=== PATIENT | male | born 1960 | race Caucasian/White ===

== ENCOUNTER 2018-04-24 17:06 | Emergency (ER) | payer MEDICARE, OTHER ==
[~2018-04-24] VITALS: Ht 172.7 cm; Wt 81.6 kg
[~2018-04-24 17:06] MED LIST: LEVO25TA2; QUET200T PO
[2018-04-24] MEDS ORDERED: LIDOCAINE 1% INJ 50 ML MDV IJ ONE ×2 (18:49→19:00)
[2018-04-24] MEDS ORDERED: SULFAMETH/TRIMETH 800/160 MG 1 UDTAB TABLET PO ONE ×4 (19:00→20:00)
[2018-04-24] MEDS ORDERED: IBUPROFEN 400 MG TABLET PO ONE (19:00)
[2018-04-24] MEDS ORDERED: CEPHALEXIN MONOHYDRATE 500 MG CAPSULE PO ONE ×4 (19:00→20:00)
--- NOTE | 2018-04-24 19:00 | NUR ---
PT BIBSELF C/O ABDOMINAL ABSCESS. NOTED REDDNESS. PT AFEBRILE
--- NOTE | 2018-04-24 19:01 | NUR ---
ER TEST BORING CREW CHIEF AT BEDSIDE FOR I&D
[2018-04-24] MEDS ORDERED: IBUPROFEN 400 MG TABLET ONE (19:28)
[2018-04-24] MEDS ORDERED: IV NS 0.9% 1,000 ML BAG IV ONE (19:30)
[2018-04-24] MEDS ORDERED: VANCOMYCIN 1 GM in IV D5W 250 ML IV ONE (19:30)
--- NOTE | 2018-04-24 19:30 | NUR ---
PT REFUSED IV FLUIDS, BLOOD WORK, AND CT SCAN AT THIS TIME. TRACY MEDINA AT BEDSIDE TO DISCUSS WITH PT RISKS AND BENEFITS. Patient does not wish to proceed with medical care recommended by ARIS MAHER NP. Patient given information related to possible complications, up to and including , which could occur as a result of leaving the hospital at this time. Patient verbalizes understanding of risks involved due to leaving against medical advice. Patient has signed AMA form.
[2018-04-24] MEDS ORDERED: VANCOMYCIN 1 GM VIAL ONE (19:32)
[2018-04-24 20:09] VITALS: BP 128/87
== END 2018-04-24 20:10 | disposition left against medical advice (07) ==
LOC: ER 17:08
DX: L02.211 Cutaneous abscess of abdominal wall (principal); L03.311 Cellulitis of abdominal wall; F19.10 Other psychoactive substance abuse, uncomplicated; Z85.850 Personal history of malignant neoplasm of thyroid; Z90.89 Acquired absence of other organs; Z79.899 Other long term (current) drug therapy
CPT/HCPCS: A4606; A6253; A6402; A6403; J3370; J3490; J7030; Z7610

== ENCOUNTER → 2018-04-26 | Emergency (ER) | payer MEDICARE, OTHER ==
[~2018-04-26] VITALS: Ht 175.3 cm; Wt 83.5 kg
[~2018-04-26] MED LIST changes: +LIDOCAINE 1% INJ 50 ML MDV IJ ONE; +LIDOCAINE HCL/PF 1% 30 ML VIAL TP ONE; +SULFAMETH/TRIMETH 800/160 MG 1 UDTAB TABLET PO ONE
[2018-04-26 12:03] VITALS: BP 117/83
--- NOTE | 2018-04-26 12:11 | NUR ---
ambulatory to room - no acute distress here for wound check s/p I/d x 2days ago per pt - states redness much better and less -LLQ wound with drain inplaced with dried serosanginous on dressing , denies pain or fever - waiting for MD suresh
--- NOTE | 2018-04-26 12:25 | NUR ---
Black sanchez in ED - 04/26/18 at 1249 by WILLIE pt c/o ava kruse aware
--- NOTE | 2018-04-26 12:25 | NUR ---
seen and eval by PA
--- NOTE | 2018-04-26 12:48 | NUR ---
I/D set up at bedside - prep pt by development technical lead
== END | disposition home or self-care (01) ==
LOC: ER 11:58
DX: L02.211 Cutaneous abscess of abdominal wall (principal); Z85.850 Personal history of malignant neoplasm of thyroid; Z90.89 Acquired absence of other organs; Z79.899 Other long term (current) drug therapy
CPT/HCPCS: A4606; A6402; A6403; A6407; J3490; Z7610

== ENCOUNTER 2021-08-22 19:35 | Emergency (ER) | payer MEDICARE, OTHER ==
[~2021-08-22] VITALS: Ht 175.3 cm; Wt 77.1 kg
[~2021-08-22 19:35] MED LIST changes: -LIDOCAINE 1% INJ 50 ML MDV IJ ONE; -LIDOCAINE HCL/PF 1% 30 ML VIAL TP ONE; -SULFAMETH/TRIMETH 800/160 MG 1 UDTAB TABLET PO ONE
[2021-08-22 20:42] VITALS: BP 158/112
--- NOTE | 2021-08-22 20:45 | NUR ---
TO ER BED 1. BIBS C/O HEADACHE X TODAY. NOT RELIEVED BY OTC. PT DENIES ANY WEAKNESS OR SLURRED SPEECH. CONNECTED TO MONITOR. AWAITING MD PATTERSON
[2021-08-22] MEDS ORDERED: ONDANSETRON 4 MG TAB.RAPDIS ONE (22:17)
[2021-08-22] MEDS ORDERED: oxyCODONE/APAP (5/325 MG) 1 UDTAB TABLET ONE (22:17)
[2021-08-22] MEDS ORDERED: OLANZAPINE 5 MG TABLET ONE (22:18)
--- NOTE | 2021-08-22 22:19 | NUR ---
URINE COLLECTED AND SENT TO LAB
--- NOTE | 2021-08-22 22:27 | NUR ---
LAB AT BEDSIDE
--- NOTE | 2021-08-22 22:28 | NUR ---
COVID ANTIGEN SWAB COLLECTED AND SENT TO LAB
[2021-08-22] MEDS ORDERED: OLANZAPINE 5 MG TABLET PO ONE (22:30)
[2021-08-22] MEDS ORDERED: oxyCODONE/APAP (5/325 MG) 1 UDTAB TABLET PO ONE (22:30)
[2021-08-22] MEDS ORDERED: ONDANSETRON 4 MG TAB.RAPDIS SL ONE (22:30)
[2021-08-22 23:07] LABS: ALANINE AMINOTRANSFERASE 39 U/L (12-78); ALBUMIN 3.9 g/dL (3.4-5.0); ALCOHOL, BLOOD < 3 mg/dL (0-0); ALKALINE PHOSPHATASE 69 U/L (46-116); ASPARTATE AMINOTRANSFERASE 23 U/L (15-37); BILIRUBIN,DIRECT 0.1 mg/dL (0.0-0.2); BILIRUBIN,TOTAL 0.5 mg/dL (0.2-1.0); CALCIUM, SERUM 9.6 mg/dL (8.5-10.1); CARBON DIOXIDE 27 mmol/L (21-32); CHLORIDE 104 mmol/L (98-107); GLUCOSE 90 mg/dL (74-106); POTASSIUM 3.3 mmol/L (3.5-5.1); SODIUM SERUM 141 mmol/L (136-145); TOTAL PROTEIN, SERUM 7.9 g/dL (6.4-8.2); UREA NITROGEN, BLOOD 9 mg/dL (7-18)
[2021-08-22 23:11] LABS: BILIRUBIN,URINE NEGATIVE (NEGATIVE); COLOR,URINE YELLOW (YELLOW); LEUKOCYTE ESTERASE ,URINE NEGATIVE (NEGATIVE); NITRITE, URINE NEGATIVE (NEGATIVE); PROTEIN,URINE NEGATIVE (NEGATIVE); UGLUCOSE NEGATIVE (NEGATIVE); UROBILINOGEN,URINE 0.2 EU/dL (0.2)
[2021-08-22 23:28] LABS: ACETAMINOPHEN < 2 ug/ml (10-30)
--- NOTE | 2021-08-22 23:28 | NUR ---
PT SEEN BY [facility] TEAM
[2021-08-22 23:30] LABS: BASOPHILS % (AUTO) 0.4 % (0.0-2.0); HEMATOCRIT 37 % (39-51); HEMOGLOBIN 12.6 g/dL (13.5-17.5); LYMPHOCYTES # (AUTO) 2.6 K/uL (0.8-4.8); LYMPHOCYTES % (AUTO) 31.2 % (20.0-44.0); MEAN CORPUSCULAR HGB CONC 34 g/dl (31.0-36.0); MEAN CORPUSCULAR VOLUME 88 fL (80-96); MONOCYTES # (AUTO) 0.5 K/uL (0.1-1.30); MONOCYTES % (AUTO) 5.6 % (2.0-12.0); NEUTROPHILS % (AUTO) 60.8 % (43.0-81.0); PLATELET COUNT (AUTO) 242 K/uL (150-450); WHITE BLOOD COUNT (AUTO) 8.2 K/uL (4.3-11.0)
[2021-08-22] MEDS ORDERED: LORAZEPAM 1 MG TABLET ONE (23:48)
[2021-08-23] MEDS ORDERED: LORAZEPAM 1 MG TABLET PO ONE
--- NOTE | 2021-08-23 03:02 | NUR ---
S/W MUKESH FROM [facility], PLEASE CALL BACK WITH ETA TO [phone]
--- NOTE | 2021-08-23 03:47 | NUR ---
S/W FELIZ TO GIVE REPORT
--- NOTE | 2021-08-23 03:56 | NUR ---
ARRANGED TX WITH [facility], 30 MIN ETA
== END 2021-08-23 07:13 ==
LOC: ER 19:41
DX: F32.A Depression, unspecified (principal); R51.9 Headache, unspecified; F11.10 Opioid abuse, uncomplicated; F17.210 Nicotine dependence, cigarettes, uncomplicated; E89.0 Postprocedural hypothyroidism; Z79.890 Hormone replacement therapy; Z85.850 Personal history of malignant neoplasm of thyroid; R03.0 Elevated blood-pressure reading, without diagnosis of hypertension; Z20.822 Contact with and (suspected) exposure to COVID-19
CPT/HCPCS: 36415; 80048; 80076; 80143; 80307; 80320; 81003; 85025; 87426; 99284; 99406; C9803; Q0162; G0480

== ENCOUNTER 2022-01-28 08:12 | Emergency (ER) | payer OTHER ==
[~2022-01-28] VITALS: Ht 177.8 cm; Wt 81.6 kg
--- NOTE | 2022-01-28 08:32 | NUR ---
TO ER BED 10, C/O ON & OFF SOB X 4 DAYS LASTING FOR "4 SECONDS", AAOX3, BREATHING EVEN AND NON LABORED, CONNECTED TO MONITOR, AWAITING MD PATTERSON
[2022-01-28 09:38] LABS: BASOPHILS # (AUTO) 0.1 K/uL (0.0-0.2); BASOPHILS % (AUTO) 1.2 % (0.0-2.0); EOSINOPHILS % (AUTO) 4.3 % (0.0-6.0); HEMATOCRIT 40 % (39-51); HEMOGLOBIN 13.2 g/dL (13.5-17.5); LYMPHOCYTES # (AUTO) 2.6 K/uL (0.8-4.8); LYMPHOCYTES % (AUTO) 36.4 % (20.0-44.0); MEAN CORPUSCULAR HGB CONC 34 g/dl (31.0-36.0); MEAN CORPUSCULAR VOLUME 91 fL (80-96); MONOCYTES # (AUTO) 0.5 K/uL (0.1-1.30); MONOCYTES % (AUTO) 7.5 % (2.0-12.0); NEUTROPHILS # (AUTO) 3.6 K/uL (1.8-8.9); NEUTROPHILS % (AUTO) 50.6 % (43.0-81.0); PLATELET COUNT (AUTO) 252 K/uL (150-450); RED BLOOD CELL COUNT(AUTO) 4.35 MIL/uL (4.5-6.0); WHITE BLOOD COUNT (AUTO) 7.1 K/uL (4.3-11.0)
[2022-01-28 09:54] LABS: CALCIUM, SERUM 9.6 mg/dL (8.5-10.1); CARBON DIOXIDE 24 mmol/L (21-32); CHLORIDE 105 mmol/L (98-107); CREATININE 0.8 mg/dL (0.6-1.3); GLUCOSE 104 mg/dL (74-106); POTASSIUM 3.8 mmol/L (3.5-5.1); SODIUM SERUM 138 mmol/L (136-145); UREA NITROGEN, BLOOD 19 mg/dL (7-18)
--- NOTE | 2022-01-28 10:20 | NUR ---
Patient discharged to home in stable condition. Written and verbal after care instructions given. Patient verbalizes understanding of instruction.
[2022-01-28 10:37] VITALS: BP 136/90
== END 2022-01-28 10:37 | disposition home or self-care (01) ==
LOC: ER 08:22
DX: F41.9 Anxiety disorder, unspecified (principal); R06.02 Shortness of breath; Z98.890 Other specified postprocedural states; Z79.899 Other long term (current) drug therapy
CPT/HCPCS: 36415; 71045-TC; 80048-TC; 84484-TC; 85025-TC

== ENCOUNTER 2022-05-24 16:13 | Emergency (ER) | payer OTHER ==
[~2022-05-24] VITALS: Ht 177.8 cm; Wt 81.6 kg
--- NOTE | 2022-05-24 16:31 | NUR ---
EKG NOTED BY DR SMITH,BACK TO WR TO WAIT FOR ER BED
[2022-05-24 18:31] LABS: BASOPHILS % (AUTO) 0.6 % (0.0-2.0); EOSINOPHILS % (AUTO) 6.9 % (0.0-6.0); HEMATOCRIT 38 % (39-51); HEMOGLOBIN 12.3 g/dL (13.5-17.5); LYMPHOCYTES # (AUTO) 2.9 K/uL (0.8-4.8); LYMPHOCYTES % (AUTO) 34.7 % (20.0-44.0); MEAN CORPUSCULAR HGB CONC 33 g/dl (31.0-36.0); MEAN CORPUSCULAR VOLUME 93 fL (80-96); MONOCYTES # (AUTO) 0.5 K/uL (0.1-1.30); MONOCYTES % (AUTO) 6.5 % (2.0-12.0); NEUTROPHILS # (AUTO) 4.4 K/uL (1.8-8.9); NEUTROPHILS % (AUTO) 51.3 % (43.0-81.0); PLATELET COUNT (AUTO) 225 K/uL (150-450); RED BLOOD CELL COUNT(AUTO) 4.05 MIL/uL (4.5-6.0); WHITE BLOOD COUNT (AUTO) 8.5 K/uL (4.3-11.0)
[2022-05-24 18:43] LABS: CREATININE 0.9 mg/dL (0.6-1.3); POTASSIUM 3.8 mmol/L (3.5-5.1)
[2022-05-24 18:51] LABS: ALBUMIN 3.6 g/dL (3.4-5.0); BILIRUBIN,TOTAL 0.2 mg/dL (0.2-1.0); TOTAL PROTEIN, SERUM 7.2 g/dL (6.4-8.2)
--- NOTE | 2022-05-24 20:53 | NUR ---
Patient does not wish to proceed with medical care recommended by Adrian Mckeon. Patient given information related to possible complications, up to and including , which could occur as a result of leaving the hospital at this time. Patient verbalizes understanding of risks involved due to leaving against medical advice. Patient has signed AMA form.
[2022-05-24 20:54] VITALS: BP 132/82
== END 2022-05-24 20:54 | disposition left against medical advice (07) ==
LOC: ER 16:19
DX: R07.89 Other chest pain (principal); F17.200 Nicotine dependence, unspecified, uncomplicated; Z90.89 Acquired absence of other organs; Z79.899 Other long term (current) drug therapy
CPT/HCPCS: 36415; 71045-TC; 80053-TC; 83880; 84484-TC; 85025-TC

== ENCOUNTER 2022-05-25 18:39 | Inpatient (IN) | payer OTHER ==
[~2022-05-25] VITALS: Ht 177.8 cm; Wt 102.5 kg
--- NOTE | 2022-05-25 18:45 | NUR ---
RECEIVED PT 61 YRS MALE CAME FROM HOME C/O CHEST PAIN FOR ONE WEEK AWAKE AND ALERT
--- NOTE | 2022-05-25 19:17 | NUR ---
IV l hand #20g s/l blood collected and sent to lab
--- NOTE | 2022-05-25 19:18 | NUR ---
COVID ANTIGEN SWAB COLLECTED AND SENT TO LAB
--- NOTE | 2022-05-25 19:27 | NUR ---
HAND OFF ANABEL ROGERS
--- NOTE | 2022-05-25 19:52 | NUR ---
HOT STICK WORKER AT PT'S BEDSIDE
[2022-05-25] MEDS ORDERED: NITROGLYCERIN 0.4 MG/TAB BOTTLE ONE (19:54)
[2022-05-25] MEDS ORDERED: NITROGLYCERIN PACKET 1 GM PACKET ONE (19:55)
[2022-05-25] MEDS ORDERED: ASPIRIN 325 MG TABLET ONE (19:55)
[2022-05-25] MEDS ORDERED: NITROGLYCERIN PACKET 1 GM PACKET TD ONE (20:00)
[2022-05-25] MEDS ORDERED: ASPIRIN 325 MG TABLET PO ONE (20:00)
[2022-05-25] MEDS ORDERED: NITROGLYCERIN 0.4 MG/TAB BOTTLE SL ONE (20:00)
[2022-05-25 20:13] LABS: CALCIUM, SERUM 8.9 mg/dL (8.5-10.1); POTASSIUM 3.9 mmol/L (3.5-5.1)
[2022-05-25 20:15] LABS: BASOPHILS # (AUTO) 0.1 K/uL (0.0-0.2); BASOPHILS % (AUTO) 1.1 % (0.0-2.0); EOSINOPHILS % (AUTO) 7.2 % (0.0-6.0); HEMATOCRIT 34 % (39-51); HEMOGLOBIN 11.7 g/dL (13.5-17.5); LYMPHOCYTES # (AUTO) 2.7 K/uL (0.8-4.8); LYMPHOCYTES % (AUTO) 37.1 % (20.0-44.0); MEAN CORPUSCULAR HGB CONC 35 g/dl (31.0-36.0); MEAN CORPUSCULAR VOLUME 90 fL (80-96); MONOCYTES # (AUTO) 0.5 K/uL (0.1-1.30); MONOCYTES % (AUTO) 6.8 % (2.0-12.0); NEUTROPHILS # (AUTO) 3.5 K/uL (1.8-8.9); NEUTROPHILS % (AUTO) 47.8 % (43.0-81.0); PLATELET COUNT (AUTO) 214 K/uL (150-450); RED BLOOD CELL COUNT(AUTO) 3.74 MIL/uL (4.5-6.0); WHITE BLOOD COUNT (AUTO) 7.4 K/uL (4.3-11.0)
[2022-05-25 20:25] LABS: ALBUMIN 3.6 g/dL (3.4-5.0); BILIRUBIN,DIRECT 0.1 mg/dL (0.0-0.2); BILIRUBIN,TOTAL 0.2 mg/dL (0.2-1.0)
--- NOTE | 2022-05-25 20:43 | NUR ---
EPIC DEFENSE TRAVEL ADMINISTRATOR PAGED.
[2022-05-25] MEDS ORDERED: ONDANSETRON HCL/PF 4 MG/2 ML VIAL IVP PRN (21:30)
[2022-05-25] MEDS ORDERED: MORPHINE SULFATE INJ 2 MG/ML DISP.SYRIN IV PRN (21:30)
[2022-05-25] MEDS ORDERED: ACETAMINOPHEN 325 MG TABLET PO PRN (21:30)
[2022-05-25] MEDS ORDERED: MAG HYDROX/AL HYDROX/SIMETH 30 ML UDC PO PRN (21:30)
[2022-05-25] MEDS ORDERED: QUETIAPINE FUMARATE 100 MG TABLET PO SCH (22:00)
[2022-05-25 22:01] LABS: THYROID STIMULATING HORMONE 70.512 uIU/mL (0.358-3.74)
--- NOTE | 2022-05-25 22:01 | NUR ---
REPORT GIVEN TO SIMEON FarrellW RN FOR ANNALISA
--- NOTE | 2022-05-25 22:14 | NUR ---
PT TRANSFERRED TO [facility] VIA ACLS PROTOCOL. ALL BELONGINGS WITH PT. VSS
[2022-05-25 22:45] VITALS: BP 127/65
[2022-05-25] MEDS ORDERED: hydrALAZINE HCL IV 20 MG VIAL IV PRN (23:00)
--- NOTE | 2022-05-25 23:00 | NUR ---
GARDEN WORKERRETAIL ADVERTISING EXECUTIVE NOTES: RECEIVED PATIENT FROM ER VIA [facility] ON STABLE CONDITION, PLACED IN BED COMFORTABLY, BED IN LOW POSITION CALL LIGHTS WITHIN REACH, NO COMPLAIN OF PAIN AND DISCOMFORT AT THIS TIME, ON ROOM AIR SATURATING WELL, PATIENT IS A/OX4 ABLE TO MAKE NEEDS KNOWN, AMBULATORY, ON TELE MONITOR- SR-71,WITH IV LINE AT LEFT HAND #20 SL, SKIN ASSESSMENT DONE DOCUMENTED, PICTURED TAKEN, INVENTORIES DONE AND SIGNED, PATIENT KEPT CLEAN AND DRY ALL NEEDS MET WILL CONTINUE TO MONITOR.
--- NOTE | 2022-05-25 23:30 | NUR ---
RN NOTES PATIENT REFUSED SEROQUEL 200MG POHS HE STATE HE DOES NOT NEED IT, EXPLAIN TO HIM THE MEDICATION, AND THE RISK AND BENEFITS PATIENT STILL REFUSED, WILL CONTINUE TO MONITOR- MEDICATION RETURN.
[2022-05-26] VITALS: BP 136/70
[2022-05-26 04:00] VITALS: BP 107/71
--- NOTE | 2022-05-26 06:55 | NUR ---
RN NOTES: MRSA ORDERED SWAB ON BILATERAL NARES DONE
[2022-05-26] MEDS ORDERED: LEVOTHYROXINE SODIUM 25 MCG TABLET PO SCH ×2 (07:00)
--- NOTE | 2022-05-26 07:00 | NUR ---
PACKAGER HEAD CLOSING NOTES: PATIENT AWAKE IN BED, BED IN LOW POSITION, CALL LIGHTS WITHIN REACH, NO COMPLAIN OF PAIN AND DISCOMFORT AT THIS TIME, ON ROOM AIR SATURATING WELL, PATIENT IS A/OX4 ABLE TO MAKE NEEDS KNOWN, ON TELE MONITOR SR-72, KEPT CLEAN AND DRY ALL NEEDS MET ENDORSE TO INCOMING SHIFT
--- NOTE | 2022-05-26 07:05 | NUR ---
VESSEL BUILDER OPENING NOTES: PATIENT AWAKE IN BED. A/OX4 AND ABLE TO MAKE NEEDS KNOWN. PT ON ROOM AIR, BUT COMPLAINED OF SOB WHEN INTRODUCING MYSELF, SO PUT ON O2NC @2L FOR COMFORT. SATURATING AT 99%. PT ON TELE MONITOR READING AT SR, 63BPM. SAFETY MEASURES IN PLACE WITH BED IN LOWEST LOCKED POSITION, CALL LIGHT AND TRAY WITHIN REACH. WILL CONTINUE TO MONITOR.
[2022-05-26 08:00] VITALS: BP 117/86
[2022-05-26 08:12] VITALS: BP 107/71
[2022-05-26] MEDS ORDERED: ASPIRIN 81 MG TAB.CHEW PO SCH (10:00)
[2022-05-26 10:09] LABS: BASOPHILS % (AUTO) 0.5 % (0.0-2.0); EOSINOPHILS % (AUTO) 7.5 % (0.0-6.0); HEMATOCRIT 34 % (39-51); HEMOGLOBIN 11.2 g/dL (13.5-17.5); LYMPHOCYTES # (AUTO) 2.3 K/uL (0.8-4.8); LYMPHOCYTES % (AUTO) 30.7 % (20.0-44.0); MEAN CORPUSCULAR HGB CONC 33 g/dl (31.0-36.0); MEAN CORPUSCULAR VOLUME 92 fL (80-96); MONOCYTES # (AUTO) 0.5 K/uL (0.1-1.30); MONOCYTES % (AUTO) 6.7 % (2.0-12.0); NEUTROPHILS # (AUTO) 4.1 K/uL (1.8-8.9); NEUTROPHILS % (AUTO) 54.6 % (43.0-81.0); PLATELET COUNT (AUTO) 198 K/uL (150-450); RED BLOOD CELL COUNT(AUTO) 3.67 MIL/uL (4.5-6.0); WHITE BLOOD COUNT (AUTO) 7.4 K/uL (4.3-11.0)
[2022-05-26 11:00] LABS: ALBUMIN 3.4 g/dL (3.4-5.0); BILIRUBIN,TOTAL 0.2 mg/dL (0.2-1.0); CALCIUM, SERUM 8.8 mg/dL (8.5-10.1); CREATININE 1.1 mg/dL (0.6-1.3); PHOSPHORUS 3.5 mg/dL (2.5-4.9); POTASSIUM 3.7 mmol/L (3.5-5.1); TOTAL PROTEIN, SERUM 6.7 g/dL (6.4-8.2)
[2022-05-26 11:04] LABS: IRON, SERUM 80 ug/dl (50-175); TOTAL IRON BINDING CAPACITY 339 ug/dl (250-450)
[2022-05-26] MEDS ORDERED: CT SWABBABLE VALVE TRANS SET 1 EA INFUS.SET MC ONE (12:42)
[2022-05-26] MEDS ORDERED: IOHEXOL-350 100 ML VIAL IV ONE (12:42)
[2022-05-26] MEDS ORDERED: IV NS 0.9% 250 ML IV ONE (12:42)
[2022-05-26] MEDS ORDERED: NITROGLYCERIN 0.4 MG/TAB BOTTLE ONE (12:43)
--- NOTE | 2022-05-26 12:55 | NUR ---
CTCA COMPLETED. NO IV METOPROLOL GIVEN. NITRO SL X1 GIVEN. STABLE POST PROCEDURE. DENIES CP/DISCOMFORT.
[2022-05-26 13:00] VITALS: BP 107/71
[2022-05-26] MEDS ORDERED: LEVOTHYROXINE INJ 100 MCG VIAL IV ONE (13:00)
[2022-05-26 13:10] LABS: CHOLESTEROL 163 mg/dL (<200); FERRITIN 80 ng/mL (8-388); HDL CHOLESTEROL 50 mg/dL (40-60); LDL 93 mg/dL (0-99); TRIGLYCERIDES 159 mg/dL (30-150)
--- NOTE | 2022-05-26 13:10 | NUR ---
SWORD SWALLOWER NOTE PT DISCHARGING AMA IN STABLE CONDITION. EXPLAINED THE RISKS AND BENEFITS OF STAYING, BUT DUE TO A FAMILY EMERGENCY HE MUST LEAVE. PATIENT IS A/OX4 AND ON ROOM AIR SATURATING AT 100%. PATIENT ON TANK WORKER READING SR 71 BUT STATES NOT CURRENTLY IN PAIN. PATIENT COMPLETED CT ANGIO HEART WITH 3D IMAGE BEFORE LEAVING. HE WILL FOLLOW UP WITH HIS PRIMARY DR ON SATURDAY. IV AND WRIST BAND REMOVED AND WAS ESCORTED OUT BY RN.
== END 2022-05-26 13:45 | disposition left against medical advice (07) | DRG 206 ==
LOC: ER 18:46 → TELE 21:48
PROVIDERS: ADMIT Internal Medicine; ATTEND Nurse Practitioner Acute Care
PROC: 05H533Z Insertion of Infusion Device into Right Subclavian Vein, Percutaneous Approach (ICD-10-PCS; principal; 2022-05-26)
PROC: B546ZZA Ultrasonography of Right Subclavian Vein, Guidance (ICD-10-PCS; 2022-05-26)
DX: M94.0 Chondrocostal junction syndrome [Tietze] (principal); D64.9 Anemia, unspecified; E89.0 Postprocedural hypothyroidism; F17.210 Nicotine dependence, cigarettes, uncomplicated; I10 Essential (primary) hypertension; Z85.850 Personal history of malignant neoplasm of thyroid; Z20.822 Contact with and (suspected) exposure to COVID-19
CPT/HCPCS: 36410; 36415; 71045-TC; 75574; 80048-TC; 80053-TC; 80061-TC; 80076-TC; 82728-TC; 83540-TC; 83735-TC; 83880; 84100-TC; 84439-TC; 84443-TC; 84484-TC; 85025-TC; 93307-TC; C9803; G0378; J7050; Q9967

== ENCOUNTER 2022-07-04 13:42 | Emergency (ER) | payer OTHER ==
[~2022-07-04] VITALS: Ht 180.3 cm; Wt 92.1 kg
[2022-07-04] MEDS ORDERED: IV NS 0.9% 1,000 ML BAG IV ONE (14:00)
[2022-07-04] MEDS ORDERED: ONDANSETRON HCL/PF 4 MG/2 ML VIAL IVP ONE (14:00)
[2022-07-04] MEDS ORDERED: MORPHINE SULFATE INJ 2 MG/ML DISP.SYRIN IV ONE (14:00)
--- NOTE | 2022-07-04 14:01 | NUR ---
C/O LLQ PAIN X "FEW WEEKS" GOT WORSE X 3 DAYS. DENIES NAUSEA/ VOMITING/ DIARRHEA. PT PLACED IN BED AND CONNECTED TO MONITOR. AWAITING MD ORDERS.
[2022-07-04 14:39] LABS: BASOPHILS % (AUTO) 0.6 % (0.0-2.0); EOSINOPHILS % (AUTO) 5.9 % (0.0-6.0); HEMATOCRIT 39 % (39-51); HEMOGLOBIN 13.2 g/dL (13.5-17.5); LYMPHOCYTES # (AUTO) 2.7 K/uL (0.8-4.8); LYMPHOCYTES % (AUTO) 33.3 % (20.0-44.0); MEAN CORPUSCULAR HGB CONC 34 g/dl (31.0-36.0); MEAN CORPUSCULAR VOLUME 92 fL (80-96); MONOCYTES # (AUTO) 0.5 K/uL (0.1-1.30); MONOCYTES % (AUTO) 6.5 % (2.0-12.0); NEUTROPHILS # (AUTO) 4.3 K/uL (1.8-8.9); NEUTROPHILS % (AUTO) 53.7 % (43.0-81.0); PLATELET COUNT (AUTO) 257 K/uL (150-450); RED BLOOD CELL COUNT(AUTO) 4.26 MIL/uL (4.5-6.0)
[2022-07-04] MEDS ORDERED: ONDANSETRON HCL/PF 4 MG/2 ML VIAL ONE (14:56)
[2022-07-04] MEDS ORDERED: MORPHINE SULFATE INJ 4 MG/ML DISP.SYRIN ONE (14:56)
[2022-07-04 15:04] LABS: ALBUMIN 4.2 g/dL (3.4-5.0); BILIRUBIN,DIRECT 0.1 mg/dL (0.0-0.2); BILIRUBIN,TOTAL 0.2 mg/dL (0.2-1.0); CALCIUM, SERUM 9.5 mg/dL (8.5-10.1); POTASSIUM 3.8 mmol/L (3.5-5.1); TOTAL PROTEIN, SERUM 7.8 g/dL (6.4-8.2)
--- NOTE | 2022-07-04 15:56 | NUR ---
PT TAKEN TO CT VIA [facility]
[2022-07-04] MEDS ORDERED: HYDROMORPHONE 1 MG/1 ML DISP.SYRIN IV ONE (17:00)
[2022-07-04] MEDS ORDERED: HYDR-4209 PO (17:07)
[2022-07-04] MEDS ORDERED: ONDA4TAB5 PO (17:07)
[2022-07-04] MEDS ORDERED: HYDROMORPHONE 1 MG/1 ML DISP.SYRIN ONE (17:17)
[2022-07-04 17:28] VITALS: BP 136/99
== END 2022-07-04 17:30 | disposition home or self-care (01) ==
LOC: ER 13:53
DX: K43.9 Ventral hernia without obstruction or gangrene (principal); R16.0 Hepatomegaly, not elsewhere classified; R10.33 Periumbilical pain; F17.200 Nicotine dependence, unspecified, uncomplicated; Z85.850 Personal history of malignant neoplasm of thyroid; Z79.899 Other long term (current) drug therapy; Z90.89 Acquired absence of other organs
CPT/HCPCS: 99285; 74176; 96374; 96375; 96361; 85025; 80048; 83690; 80076; 36415; J2270; J2405; J7030; J1170

== ENCOUNTER 2022-09-27 19:58 | Inpatient (IN) | payer OTHER ==
[~2022-09-27] VITALS: Ht 180.3 cm; Wt 85.3 kg
[~2022-09-27 19:58] MED LIST changes: +HYDR-4209 PO; +ONDA4TAB5 PO
--- NOTE | 2022-09-27 20:50 | NUR ---
Trace AOx4, able to express his concerns. Patient states he has had abdominal pain for a couple of day. Trace VSS, no signs of distress. Will continue to monitor.
[2022-09-27] MEDS ORDERED: IV NS 0.9% 1,000 ML IV ONE (21:00)
--- NOTE | 2022-09-27 21:03 | NUR ---
Blood collected, sent to lab
[2022-09-27 21:30] LABS: BASOPHILS # (AUTO) 0.1 K/uL (0.0-0.2); BASOPHILS % (AUTO) 1.3 % (0.0-2.0); EOSINOPHILS % (AUTO) 3.1 % (0.0-6.0); HEMATOCRIT 41 % (39-51); HEMOGLOBIN 13.3 g/dL (13.5-17.5); LYMPHOCYTES # (AUTO) 2.6 K/uL (0.8-4.8); LYMPHOCYTES % (AUTO) 22.6 % (20.0-44.0); MEAN CORPUSCULAR HGB CONC 33 g/dl (31.0-36.0); MEAN CORPUSCULAR VOLUME 91 fL (80-96); MONOCYTES # (AUTO) 0.7 K/uL (0.1-1.30); MONOCYTES % (AUTO) 6.1 % (2.0-12.0); NEUTROPHILS # (AUTO) 7.8 K/uL (1.8-8.9); NEUTROPHILS % (AUTO) 66.9 % (43.0-81.0); PLATELET COUNT (AUTO) 319 K/uL (150-450); RED BLOOD CELL COUNT(AUTO) 4.47 MIL/uL (4.5-6.0); WHITE BLOOD COUNT (AUTO) 11.6 K/uL (4.3-11.0)
[2022-09-27 21:43] LABS: CALCIUM, SERUM 10.1 mg/dL (8.5-10.1); CREATININE 1.1 mg/dL (0.6-1.3); POTASSIUM 4.1 mmol/L (3.5-5.1)
[2022-09-27 21:56] LABS: ALBUMIN 4.2 g/dL (3.4-5.0); BILIRUBIN,DIRECT 0.1 mg/dL (0.0-0.2); BILIRUBIN,TOTAL 0.5 mg/dL (0.2-1.0); TOTAL PROTEIN, SERUM 8.8 g/dL (6.4-8.2)
--- NOTE | 2022-09-27 22:34 | NUR ---
URINE COLLECTED AND SENT TO LAB
--- NOTE | 2022-09-27 22:54 | NUR ---
DR MADRID ON PHONE CALL WITH DR PEACOCK
--- NOTE | 2022-09-27 23:07 | NUR ---
Doug/Luis ph.
--- NOTE | 2022-09-27 23:07 | NUR ---
COVID swab collected
--- NOTE | 2022-09-27 23:08 | NUR ---
MRSA swab collected, sent to lab
--- NOTE | 2022-09-27 23:09 | NUR ---
DR MADRID ON PHONE CALL WITH DR PEACOCK
[2022-09-27 23:17] LABS: BILIRUBIN,URINE NEGATIVE (NEGATIVE); COLOR,URINE YELLOW (YELLOW); LEUKOCYTE ESTERASE ,URINE NEGATIVE (NEGATIVE); NITRITE, URINE NEGATIVE (NEGATIVE); PROTEIN,URINE NEGATIVE (NEGATIVE); UGLUCOSE NEGATIVE (NEGATIVE); UROBILINOGEN,URINE 0.2 EU/dL (0.2)
[2022-09-27] MEDS ORDERED: MORPHINE SULFATE INJ 2 MG/ML DISP.SYRIN IV ONE (23:30)
--- NOTE | 2022-09-27 23:40 | NUR ---
Dr. Gamez at bedside, speaking with patient and family member about procedure recommended.
[2022-09-27] MEDS ORDERED: MORPHINE SULFATE INJ 2 MG/ML DISP.SYRIN ONE (23:50)
[2022-09-28] VITALS (9 sets, daily range): BP systolic 121–166; BP diastolic 85–95
[2022-09-28] MEDS ORDERED: MORPHINE SULFATE INJ 2 MG/ML DISP.SYRIN IV PRN (01:00)
[2022-09-28] MEDS ORDERED: MAGNESIUM HYDROXIDE 30 ML UDC PO PRN (01:00)
[2022-09-28] MEDS ORDERED: Z GUARD REMEDY 4 OZ OINT TP PRN (01:00)
[2022-09-28] MEDS ORDERED: MAG HYDROX/AL HYDROX/SIMETH 30 ML UDC PO PRN (01:00)
[2022-09-28] MEDS ORDERED: ACETAMINOPHEN 325 MG TABLET PO PRN (01:00)
[2022-09-28] MEDS ORDERED: HYDROCODONE/APAP 5/325MG TABLET PO PRN (01:00)
[2022-09-28] MEDS ORDERED: ZOLPIDEM TARTRATE 5 MG TABLET PO PRN (01:00)
[2022-09-28] MEDS ORDERED: ONDANSETRON HCL/PF 4 MG/2 ML VIAL IVP PRN (01:00)
[2022-09-28] MEDS ORDERED: hydrALAZINE HCL IV 20 MG VIAL IV PRN (01:00)
[2022-09-28] MEDS ORDERED: HYDROCODONE/APAP 5/325MG TABLET ONE (04:33)
[2022-09-28 05:50] LABS: BASOPHILS % (AUTO) 0.5 % (0.0-2.0); EOSINOPHILS % (AUTO) 4.2 % (0.0-6.0); HEMATOCRIT 35 % (39-51); HEMOGLOBIN 11.9 g/dL (13.5-17.5); LYMPHOCYTES # (AUTO) 2.7 K/uL (0.8-4.8); LYMPHOCYTES % (AUTO) 28.9 % (20.0-44.0); MEAN CORPUSCULAR HGB CONC 34 g/dl (31.0-36.0); MEAN CORPUSCULAR VOLUME 91 fL (80-96); MONOCYTES # (AUTO) 0.8 K/uL (0.1-1.30); MONOCYTES % (AUTO) 8.8 % (2.0-12.0); NEUTROPHILS # (AUTO) 5.5 K/uL (1.8-8.9); NEUTROPHILS % (AUTO) 57.6 % (43.0-81.0); PLATELET COUNT (AUTO) 283 K/uL (150-450); RED BLOOD CELL COUNT(AUTO) 3.91 MIL/uL (4.5-6.0); WHITE BLOOD COUNT (AUTO) 9.5 K/uL (4.3-11.0)
[2022-09-28 06:19] LABS: CALCIUM, SERUM 9.3 mg/dL (8.5-10.1); CREATININE 0.9 mg/dL (0.6-1.3); MAGNESIUM 2.2 mg/dL (1.8-2.4); PHOSPHORUS 4.2 mg/dL (2.5-4.9); POTASSIUM 3.8 mmol/L (3.5-5.1)
--- NOTE | 2022-09-28 06:50 | NUR ---
BED ASSIGNED IS 315-2
--- NOTE | 2022-09-28 08:34 | NUR ---
REPORT GIVEN TO MARY ELLEN ROGERS
--- NOTE | 2022-09-28 08:35 | NUR ---
MOVED TO INPATIENT ROOM SAFELY PER PROTOCOL
[2022-09-28] MEDS: PANTOPRAZOLE 40 MG VIAL IV SCH (09:37)
[2022-09-28] MEDS ORDERED: CARV12.52 PO (10:03)
[2022-09-28] MEDS ORDERED: LORA-258 PO (10:03)
[2022-09-28] MEDS ORDERED: LISI40TA13 PO (10:03)
[2022-09-28] MEDS ORDERED: LEVO200T8 PO (10:03)
[2022-09-28] MEDS ORDERED: IBUP-23 PO (10:09)
[2022-09-28] MEDS ORDERED: ALBU8.5H8 IH (10:09)
--- NOTE | 2022-09-28 10:17 | NUR ---
RN NOTES RECEIVED A CALL FROM DR PEACOCK FOR PT'S PROCEDURE TODAY: REPAIR OF INCARCERATED EPIGASTRIC HERNIA WITH POSSIBLE USE OF MESH, PATIENT REMAINS ON NPO. CONSENTS HAVE BEEN SECURED.
[2022-09-28] MEDS ORDERED: FENTANYL PF 250MCG/5ML AMPUL ONE (11:15)
[2022-09-28] MEDS ORDERED: MIDAZOLAM HCL 2 MG/2ML VIAL ONE ×2 (11:15→13:20)
[2022-09-28] MEDS ORDERED: VECURONIUM 10 MG VIAL ONE (11:16)
--- NOTE | 2022-09-28 11:28 | NUR ---
RN NOTES PATIENT HAS BEEN TAKEN BY TWO OR STAFF DOWN FOR SURGERY VIA PT'S BED
[2022-09-28] MEDS ORDERED: LIDOCAINE 1% INJ 50 ML MDV IJ ONE (11:35)
[2022-09-28] MEDS ORDERED: BUPIVACAINE MPF W/EPI 0.25% 30 ML VIAL ONE (11:35)
[2022-09-28] MEDS ORDERED: BACITRACIN ZINC OINT PACKET 1 EA PACKET TP ONE (13:05)
[2022-09-28] MEDS ORDERED: IV LR 1000 ML 1,000 ML IV PRN (14:30)
[2022-09-28] MEDS: ACETAMINOPHEN 325 MG TABLET PO SCH ×2 (15:18→22:41)
[2022-09-28] MEDS: CELECOXIB 100 MG CAPSULE PO SCH (15:18)
[2022-09-28] MEDS: GABAPENTIN 100 MG CAPSULE PO SCH ×2 (15:18→22:40)
--- NOTE | 2022-09-28 16:26 | NUR ---
RN POST OP NOTES PATIENT CAME BACK FROM OR AT 1345 VIA HIS BED FROM PACU ACCOMPANIED BY 2 OR STAFF, PT IS AWAKE, CONFUSED, INSISTING TO GET UP AND GO TO THE BATHROOM BUT KEEPS FALLING ASLEEP, PATIENT IS REDIRECTIBLE, ABLE TO VERBALIZE NEED. BREATHING WITHOUT DIFFICULTY ON ROOM AIR, NOT IN ANY ACUTE DISTRESS, PATIENT IS S/P REPAIR OF INCARCERATED EPIGASTRIC HERNIA WITH POSSIBLE USE OF MESH. INCISION AREA COVERED WITH DRESSING WITHOUT ANY SIGNS OF BLEEDING AT THE MOMENT. VS TAKEN AND RECORDED, STABLE. IV ACCESS ON L WRIST G#22 WITH NEW LR IV INFUSING AT 50 ML/HR, PATENT AND FLUSHING WELL. PATIENT HAS BEEN ABLE TO TOLERATE ICE CHIPS. GIVEN DUE PAIN MEDICATIONS AT 1518. PATIENT WAS ABLE TO REMEMBER THAT ABOUT THE SURGERY AND WAS ABLE TO URINATE AT 1525. WILL CONTINUE TO MONITOR.
--- NOTE | 2022-09-28 17:45 | NUR ---
RN NOTES PATIENT VOMITED X1, ABOUT 30 ML, ADMINISTERED, ZOFRAN 4 MG IVP, WILL CONTINUE TO MONITOR.
--- NOTE | 2022-09-28 19:35 | NUR ---
MS RN CLOSING NOTES PATIENT IN BED, AOX2, STILL SLEEPY BUT AROUSABLE, WANTED HIS DAUGHTER TO VISIT HIM. STABLE IN ROOM AIR WITHOUT ANY DIFFICULTY. NO COMPLAINTS OF PAIN DURING THIS TIME, NO EPISODES OF N/V AGAIN. INCISION SITE ARE INTACT WITH DRESSING WITHOUT ANY ACTIVE BLEEDING NOTED. IV ACCESS ON LEFT WRIST G#22 WITH LR RUNNING AT 50 ML/HR, PATENT, FLUSHING WELL. ALL DUE MEDS GIVEN, ALL NEEDS MET. SAFETY MEASURES MAINTAINED: BED IN LOWEST AND LOCKED POSITION, SIDE RAILS UP X2, CALL LIGHT AND TRAY TABLE WITHIN EASY REACH. ENDORSED TO BUSINESS ANALYSIS SPECIALIST NURSE.
--- NOTE | 2022-09-28 19:55 | NUR ---
MS RN OPENING NOTES RECEIVED PATIENT IN BED SLEEPING. AWAKEN BY VERBAL STIMULI. A/O X 2-3. NO S/S OF PAIN NOTED AT THIS TIME. ON ROOM AIR, BREATHING EVEN AND UNLABORED, NO DISTRESS OR SOB NOTED. ON ROOM AIR, BREATHING EVEN AND UNLABORED, NO DISTRESS OR SOB NOTED. IV ACCESS LEFT WRIST #22G RUNNING LR @ 50ML/HR, INFUSING WELL. SAFETY MEASURES IN PLACE WITH BED IN LOWEST LOCKED POSITION. SIDE RAILS UP X 2. CALL LIGHT AND TRAY WITHIN EASY REACH. WILL CONTINUE WITH THE PLAN OF CARE.
--- NOTE | 2022-09-28 23:00 | NUR ---
RN NOTES PATIENT WANTED TO LEAVE THE HOSPITAL. EXPLAINED TO THE PATIENT THAT HE WILL HAVE TO SIGN AMA FORM. SPOKE TO SON ON THE PHONE AND EXPLAINED TO HIM THAT THE PATIENT IS STILL DROWSY AND JUST HAD SURGERY TODAY. ALSO, SURGICAL INCISION DRESSING HAS BLOODY DISCHARGE. SON DIDN'T AGREE ON BOOKING HIM AN UBER SERVICE.
[2022-09-29] MEDS: CELECOXIB 100 MG CAPSULE PO SCH (03:48)
--- NOTE | 2022-09-29 04:20 | NUR ---
KEN NOTES- LORIECO GIVEN PATIENT C/O OF GENERALIZED PAIN. LORIECO GIVEN PRN. WILL CONTINUE TO MONITOR THE PATIENT. Addendum: 09/29/22 at 0641 by BRENDAN BRITO RN WRONG PATIENT
[2022-09-29 07:00] VITALS: BP 155/95
--- NOTE | 2022-09-29 07:41 | NUR ---
MS RN CLOSING NOTES PATIENT IN BED SLEEPING. AWAKEN BY VERBAL STIMULI. A/O X 4. NO S/S OF PAIN NOTED AT THIS TIME. ON ROOM AIR, BREATHING EVEN AND UNLABORED, NO DISTRESS OR SOB NOTED. ON ROOM AIR, BREATHING EVEN AND UNLABORED, NO DISTRESS OR SOB NOTED. IV ACCESS LEFT WRIST #22G RUNNING LR @ 50ML/HR, INFUSING WELL. ALL NEDS ATTENDED. SAFETY MEASURES MAINTAINED. WILL ENDORSE TO THE NEXT SHIFT.
--- NOTE | 2022-09-29 07:44 | NUR ---
MS RN OPENING NOTE (DAY SHIFT) RECEIVED PATIENT IN BED SLEEPING. AWAKEN BY VERBAL STIMULI. A/O X 2-3. NO S/S OF PAIN NOTED AT THIS TIME. ON ROOM AIR, BREATHING EVEN AND UNLABORED, NO DISTRESS OR SOB NOTED. ON ROOM AIR, BREATHING EVEN AND UNLABORED, NO DISTRESS OR SOB NOTED. IV ACCESS LEFT WRIST #22G INFUSING WELL LR @ 50 ML/HR. SAFETY MEASURES IN PLACE WITH BED IN LOWEST LOCKED POSITION. SIDE RAILS UP X 2. CALL LIGHT AND TRAY WITHIN EASY REACH. WILL CONTINUE CARE FOR AND MONITOR PATIENT PER HOSPITALIST'S PLAN OF CARE.
[2022-09-29] MEDS: ACETAMINOPHEN 325 MG TABLET PO SCH (08:38)
[2022-09-29] MEDS: GABAPENTIN 100 MG CAPSULE PO SCH (08:38)
[2022-09-29] MEDS: PANTOPRAZOLE 40 MG VIAL IV SCH (08:39)
[2022-09-29] MEDS ORDERED: ACET325T53 PO (10:12)
[2022-09-29] MEDS ORDERED: CELE100C PO (10:12)
[2022-09-29] MEDS ORDERED: GABA100C PO (10:12)
--- NOTE | 2022-09-29 13:40 | NUR ---
MS TECHNICAL SERVICES SPECIALIST NOTE (DAY SHIFT) Patient tolerated well the removal of the PIV catheters from his right and left arms, fully intact for both catheters, and without any signs of complications of IV therapy. Trace demonstrated understanding of his home care discharge instructions using the teach back method in his own words. Patient departed the [address], at 13:35 hours, walking with steady gait to an Uber taxi bound for his home.
[2022-09-30] MEDS ORDERED: PANTOPRAZOLE 40 MG TABLET.DR PO SCH (07:30)
== END 2022-09-29 12:35 | disposition home or self-care (01) | DRG 355 ==
LOC: ER 20:12 → MED 09-28 08:15
PROVIDERS: ADMIT Nurse Practitioner Acute Care; ATTEND Nurse Practitioner Acute Care
PROC: 0WUF0JZ Supplement Abdominal Wall with Synthetic Substitute, Open Approach (ICD-10-PCS; principal; 2022-09-28)
DX: K43.6 Other and unspecified ventral hernia with obstruction, without gangrene (principal); I10 Essential (primary) hypertension; Z85.850 Personal history of malignant neoplasm of thyroid; E89.0 Postprocedural hypothyroidism; Z20.822 Contact with and (suspected) exposure to COVID-19; F17.210 Nicotine dependence, cigarettes, uncomplicated
CPT/HCPCS: 36415; 71045-TC; 80048-TC; 80076-TC; 83690-TC; 83735-TC; 84100-TC; 85025-TC; 85610-TC; 86850-TC; 87081-TC; A4223; A6209; C1781; C9113; C9803; G0378; J0330; J1100; J2250; J2270; J2405; J2704; J3010; J3490; J7030; J7120

== ENCOUNTER 2023-04-23 11:57 | Emergency (ER) | payer OTHER ==
[~2023-04-23] VITALS: Ht 177.8 cm; Wt 93.9 kg
[~2023-04-23 11:57] MED LIST changes: +ACET325T53 PO; +ALBU8.5H8 IH; +CARV12.52 PO; +CELE100C PO; +GABA100C PO; -HYDR-4209 PO; +IBUP-23 PO; +LEVO200T8 PO; -LEVO25TA2; +LISI40TA13 PO; +LORA-258 PO; -ONDA4TAB5 PO; -QUET200T PO
[2023-04-23 13:59] LABS: APPEARANCE,URINE CLEAR (CLEAR); BILIRUBIN,URINE NEGATIVE (NEGATIVE); BLOOD, URINE NEGATIVE Ery/uL (NEGATIVE); COLOR,URINE YELLOW (YELLOW); KETONES,URINE NEGATIVE (NEGATIVE); LEUKOCYTE ESTERASE ,URINE NEGATIVE (NEGATIVE); NITRITE, URINE NEGATIVE (NEGATIVE); PH,URINE 5.5 (5.0-8.0); PROTEIN,URINE NEGATIVE (NEGATIVE); UGLUCOSE NEGATIVE (NEGATIVE); UROBILINOGEN,URINE 0.2 EU/dL (0.2)
[2023-04-23 14:02] LABS: AMPHETAMINE, URINE NEGATIVE (NEGATIVE); BARBITURATE, URINE POSITIVE (NEGATIVE); BENZODIAZEPINE, URINE POSITIVE (NEGATIVE); CANNABINOID, URINE NEGATIVE (NEGATIVE); COCCAINE, URINE NEGATIVE (NEGATIVE); OPIATE, URINE NEGATIVE (NEGATIVE); PHENCYCLIDINE SCREEN,URINE NEGATIVE (NEGATIVE)
[2023-04-23 14:40] LABS: BASOPHILS # (AUTO) 0.1 K/uL (0.0-0.2); BASOPHILS % (AUTO) 0.8 % (0.0-2.0); EOSINOPHILS # (AUTO) 0.5 K/uL (0.0-0.7); EOSINOPHILS % (AUTO) 5.9 % (0.0-6.0); HEMATOCRIT 35 % (39-51); HEMOGLOBIN 11.7 g/dL (13.5-17.5); LYMPHOCYTES # (AUTO) 2.6 K/uL (0.8-4.8); LYMPHOCYTES % (AUTO) 32.5 % (20.0-44.0); MEAN CORPUSCULAR HEMOGLOBIN 30 PG (26.0-33.0); MEAN CORPUSCULAR HGB CONC 33 g/dl (31.0-36.0); MEAN CORPUSCULAR VOLUME 92 fL (80-96); MONOCYTES # (AUTO) 0.5 K/uL (0.1-1.30); MONOCYTES % (AUTO) 6.5 % (2.0-12.0); NEUTROPHILS # (AUTO) 4.4 K/uL (1.8-8.9); NEUTROPHILS % (AUTO) 54.3 % (43.0-81.0); PLATELET COUNT (AUTO) 266 K/uL (150-450); RED BLOOD CELL COUNT(AUTO) 3.84 MIL/uL (4.5-6.0); RED CELL DISTRIBUTION WIDTH 13.2 % (11.5-15.0)
[2023-04-23 14:57] LABS: ACETAMINOPHEN < 10 ug/ml (10-30); ALANINE AMINOTRANSFERASE 41 U/L (12-78); ALBUMIN 3.5 g/dL (3.4-5.0); ALKALINE PHOSPHATASE 74 U/L (46-116); ASPARTATE AMINOTRANSFERASE 24 U/L (15-37); BILIRUBIN,DIRECT 0.1 mg/dL (0.0-0.2); BILIRUBIN,TOTAL 0.2 mg/dL (0.2-1.0); CALCIUM, SERUM 9.2 mg/dL (8.5-10.1); CARBON DIOXIDE 23 mmol/L (21-32); CHLORIDE 102 mmol/L (98-107); GLUCOSE 100 mg/dL (74-106); POTASSIUM 3.7 mmol/L (3.5-5.1); SODIUM SERUM 135 mmol/L (136-145); TOTAL PROTEIN, SERUM 7.7 g/dL (6.4-8.2); UREA NITROGEN, BLOOD 20 mg/dL (7-18)
[2023-04-23 15:00] LABS: ALCOHOL, BLOOD < 3 mg/dL (0-10); SALICYLATE 2.5 mg/dL (2.8-20.0)
[2023-04-23 17:13] VITALS: BP 128/80; TEMP 98.3; O2SAT 99
== END 2023-04-23 18:13 | disposition left against medical advice (07) ==
LOC: ER 11:57
DX: Z02.9 Encounter for administrative examinations, unspecified (principal); I10 Essential (primary) hypertension; E03.9 Hypothyroidism, unspecified; Z20.822 Contact with and (suspected) exposure to COVID-19
CPT/HCPCS: 99283; 85025; 80048; 80076; 81003; 36415; 87426; 80143; 80320; 80307; C9803; G0480

== ENCOUNTER 2023-06-26 15:00 | Emergency (ER) | payer OTHER ==
[~2023-06-26] VITALS: Ht 175.3 cm; Wt 88.0 kg
[2023-06-26 15:57] LABS: BASOPHILS % (AUTO) 0.4 % (0.0-2.0); EOSINOPHILS # (AUTO) 0.1 K/uL (0.0-0.7); EOSINOPHILS % (AUTO) 1.1 % (0.0-6.0); HEMATOCRIT 38 % (39-51); HEMOGLOBIN 13.3 g/dL (13.5-17.5); MEAN CORPUSCULAR HEMOGLOBIN 31 PG (26.0-33.0); MEAN CORPUSCULAR HGB CONC 35 g/dl (31.0-36.0); MEAN CORPUSCULAR VOLUME 90 fL (80-96); MONOCYTES # (AUTO) 0.5 K/uL (0.1-1.30); MONOCYTES % (AUTO) 4.5 % (2.0-12.0); NEUTROPHILS # (AUTO) 8.7 K/uL (1.8-8.9); PLATELET COUNT (AUTO) 228 K/uL (150-450); RED BLOOD CELL COUNT(AUTO) 4.24 MIL/uL (4.5-6.0); WHITE BLOOD COUNT (AUTO) 10.3 K/uL (4.3-11.0)
[2023-06-26 16:04] LABS: CALCIUM, SERUM 9.9 mg/dL (8.5-10.1); CARBON DIOXIDE 24 mmol/L (21-32); CHLORIDE 103 mmol/L (98-107); CREATININE 0.8 mg/dL (0.6-1.3); GLUCOSE 116 mg/dL (74-106); POTASSIUM 3.8 mmol/L (3.5-5.1); SODIUM SERUM 138 mmol/L (136-145); UREA NITROGEN, BLOOD 18 mg/dL (7-18)
[2023-06-26 16:17] LABS: ALANINE AMINOTRANSFERASE 37 U/L (12-78); ALBUMIN 3.9 g/dL (3.4-5.0); ALKALINE PHOSPHATASE 66 U/L (46-116); ASPARTATE AMINOTRANSFERASE 21 U/L (15-37); BILIRUBIN,DIRECT 0.1 mg/dL (0.0-0.2); BILIRUBIN,TOTAL 0.3 mg/dL (0.2-1.0); NT-PRO BNP 148 pg/mL (0-125); TOTAL PROTEIN, SERUM 7.9 g/dL (6.4-8.2)
[2023-06-26] MEDS ORDERED: ACETAMINOPHEN ES 500 MG TABLET ONE (16:51)
[2023-06-26] MEDS ORDERED: ASPIRIN 325 MG TABLET ONE (16:52)
[2023-06-26] MEDS: ASPIRIN 325 MG TABLET PO ONE (16:59)
[2023-06-26] MEDS: ACETAMINOPHEN ES 500 MG TABLET PO ONE (16:59)
[2023-06-26 18:07] VITALS: BP 141/93; TEMP 97.9; O2SAT 97
== END 2023-06-26 18:07 | disposition home or self-care (01) ==
LOC: ER 15:19
DX: R07.9 Chest pain, unspecified (principal); I10 Essential (primary) hypertension
CPT/HCPCS: 36415; 71045-TC; 80048-TC; 80076-TC; 83880; 84484-TC; 85025-TC

== ENCOUNTER 2023-07-29 19:25 | Emergency (ER) | payer OTHER ==
[~2023-07-29] VITALS: Ht 162.6 cm; Wt 91.2 kg
[2023-07-29 20:56] LABS: BASOPHILS # (AUTO) 0.1 K/uL (0.0-0.2); BASOPHILS % (AUTO) 0.7 % (0.0-2.0); EOSINOPHILS # (AUTO) 0.3 K/uL (0.0-0.7); EOSINOPHILS % (AUTO) 2.3 % (0.0-6.0); HEMATOCRIT 40 % (39-51); HEMOGLOBIN 13.3 g/dL (13.5-17.5); LYMPHOCYTES # (AUTO) 2.7 K/uL (0.8-4.8); LYMPHOCYTES % (AUTO) 24.2 % (20.0-44.0); MEAN CORPUSCULAR HEMOGLOBIN 30 PG (26.0-33.0); MEAN CORPUSCULAR HGB CONC 33 g/dl (31.0-36.0); MEAN CORPUSCULAR VOLUME 90 fL (80-96); MONOCYTES # (AUTO) 0.7 K/uL (0.1-1.30); MONOCYTES % (AUTO) 6.2 % (2.0-12.0); NEUTROPHILS # (AUTO) 7.4 K/uL (1.8-8.9); NEUTROPHILS % (AUTO) 66.6 % (43.0-81.0); PLATELET COUNT (AUTO) 272 K/uL (150-450); RED BLOOD CELL COUNT(AUTO) 4.48 MIL/uL (4.5-6.0); RED CELL DISTRIBUTION WIDTH 12.9 % (11.5-15.0); WHITE BLOOD COUNT (AUTO) 11.1 K/uL (4.3-11.0)
[2023-07-29 21:05] LABS: CALCIUM, SERUM 9.6 mg/dL (8.5-10.1); CREATININE 0.9 mg/dL (0.6-1.3); POTASSIUM 3.8 mmol/L (3.5-5.1)
[2023-07-29 21:11] LABS: ALBUMIN 3.8 g/dL (3.4-5.0); BILIRUBIN,DIRECT 0.1 mg/dL (0.0-0.2); BILIRUBIN,TOTAL 0.4 mg/dL (0.2-1.0); TOTAL PROTEIN, SERUM 7.6 g/dL (6.4-8.2)
[2023-07-29 21:37] VITALS: BP 128/80; TEMP 98.7; O2SAT 97
[2023-07-29] MEDS ORDERED: HYDR-4303 PO (21:43)
[2023-07-29] MEDS ORDERED: HYDROCODONE/APAP 5/325MG TABLET PO ONE (22:00)
== END 2023-07-29 21:51 | disposition home or self-care (01) ==
LOC: ER 19:28
DX: R10.33 Periumbilical pain (principal); I10 Essential (primary) hypertension; Z98.890 Other specified postprocedural states
CPT/HCPCS: 36415; 80048-TC; 80076-TC; 83690-TC; 85025-TC

== ENCOUNTER 2023-08-19 15:07 | Emergency (ER) | payer OTHER ==
[~2023-08-19] VITALS: Ht 175.3 cm; Wt 94.8 kg
[~2023-08-19 15:07] MED LIST changes: +HYDR-4303 PO
[2023-08-19] MEDS ORDERED: MORPHINE SULFATE INJ 4 MG/ML DISP.SYRIN ONE (16:28)
[2023-08-19] MEDS ORDERED: ONDANSETRON HCL/PF 4 MG/2 ML VIAL ONE (16:28)
[2023-08-19] MEDS: ONDANSETRON HCL/PF 4 MG/2 ML VIAL IVP ONE (16:44)
[2023-08-19] MEDS: MORPHINE SULFATE INJ 2 MG/ML DISP.SYRIN IV ONE (16:44)
[2023-08-19] MEDS: IV NS 0.9% 1,000 ML BAG IV ONE (16:44)
[2023-08-19 17:08] LABS: BASOPHILS # (AUTO) 0.1 K/uL (0.0-0.2); BASOPHILS % (AUTO) 1.2 % (0.0-2.0); EOSINOPHILS # (AUTO) 0.4 K/uL (0.0-0.7); EOSINOPHILS % (AUTO) 5.9 % (0.0-6.0); HEMATOCRIT 39 % (39-51); HEMOGLOBIN 13.4 g/dL (13.5-17.5); LYMPHOCYTES # (AUTO) 2.2 K/uL (0.8-4.8); LYMPHOCYTES % (AUTO) 31.1 % (20.0-44.0); MEAN CORPUSCULAR HEMOGLOBIN 30 PG (26.0-33.0); MEAN CORPUSCULAR HGB CONC 34 g/dl (31.0-36.0); MEAN CORPUSCULAR VOLUME 88 fL (80-96); MONOCYTES # (AUTO) 0.6 K/uL (0.1-1.30); MONOCYTES % (AUTO) 7.8 % (2.0-12.0); NEUTROPHILS # (AUTO) 3.8 K/uL (1.8-8.9); PLATELET COUNT (AUTO) 219 K/uL (150-450); RED BLOOD CELL COUNT(AUTO) 4.46 MIL/uL (4.5-6.0); RED CELL DISTRIBUTION WIDTH 13.2 % (11.5-15.0); WHITE BLOOD COUNT (AUTO) 7.1 K/uL (4.3-11.0)
[2023-08-19 17:21] LABS: CALCIUM, SERUM 9.1 mg/dL (8.5-10.1); CARBON DIOXIDE 30 mmol/L (21-32); CHLORIDE 103 mmol/L (98-107); CREATININE 0.8 mg/dL (0.6-1.3); GLUCOSE 118 mg/dL (74-106); POTASSIUM 3.8 mmol/L (3.5-5.1); SODIUM SERUM 137 mmol/L (136-145); UREA NITROGEN, BLOOD 13 mg/dL (7-18)
[2023-08-19] MEDS ORDERED: LORAZEPAM 1 MG TABLET ONE (17:28)
[2023-08-19 17:29] LABS: ALANINE AMINOTRANSFERASE 87 U/L (12-78); ALBUMIN 3.6 g/dL (3.4-5.0); ALKALINE PHOSPHATASE 66 U/L (46-116); ASPARTATE AMINOTRANSFERASE 43 U/L (15-37); BILIRUBIN,DIRECT 0.1 mg/dL (0.0-0.2); BILIRUBIN,TOTAL 0.3 mg/dL (0.2-1.0); LIPASE 22 U/L (16-77); TOTAL PROTEIN, SERUM 7.1 g/dL (6.4-8.2)
[2023-08-19] MEDS ORDERED: LORAZEPAM 1 MG TABLET PO ONE (17:30)
[2023-08-19] MEDS ORDERED: HYDR-4303 PO (18:00)
[2023-08-19] MEDS ORDERED: KETOROLAC TROMETHAMINE 15 MG/ML VIAL IV ONE (18:00)
[2023-08-19] MEDS ORDERED: ONDA4TAB5 PO (18:02)
[2023-08-19 18:08] VITALS: BP 159/105; TEMP 98.2; O2SAT 99
== END 2023-08-19 18:09 | disposition home or self-care (01) ==
LOC: ER 15:13
DX: R10.12 Left upper quadrant pain (principal); I10 Essential (primary) hypertension; F17.200 Nicotine dependence, unspecified, uncomplicated; Z90.49 Acquired absence of other specified parts of digestive tract; Z79.899 Other long term (current) drug therapy
CPT/HCPCS: 99285; 74176; 96374; 96361; 96375; 93005; 85025; 80048; 83690; 80076; 36415; 84484; J2270; J2405; J7030

== ENCOUNTER 2023-08-20 20:41 | Emergency (ER) | payer OTHER ==
[~2023-08-20] VITALS: Ht 175.3 cm; Wt 94.8 kg
[~2023-08-20 20:41] MED LIST changes: +ONDA4TAB5 PO
[2023-08-20] MEDS ORDERED: KETOROLAC TROMETHAMINE 15 MG/ML VIAL ONE (22:13)
[2023-08-20] MEDS: KETOROLAC TROMETHAMINE 15 MG/ML VIAL IM ONE (22:20)
[2023-08-21] MEDS ORDERED: oxyCODONE/APAP (5/325 MG) 1 UDTAB TABLET ONE (00:23)
[2023-08-21] MEDS: oxyCODONE/APAP (5/325 MG) 1 UDTAB TABLET PO ONE (00:28)
[2023-08-21 00:54] VITALS: BP 185/110; TEMP 98.6; O2SAT 97
== END 2023-08-21 00:55 | disposition home or self-care (01) ==
LOC: ER 20:44
DX: R10.9 Unspecified abdominal pain (principal); I10 Essential (primary) hypertension; F17.200 Nicotine dependence, unspecified, uncomplicated; Z79.899 Other long term (current) drug therapy
CPT/HCPCS: 99285; 74176; 96372; J1885

== ENCOUNTER 2025-01-27 12:32 | Emergency (ER) | payer OTHER ==
[~2025-01-27] VITALS: Ht 175.3 cm; Wt 96.6 kg
[2025-01-27 12:44] VITALS: BP 121/73; TEMP 98.3
[2025-01-27 13:27] VITALS: O2SAT 97
== END 2025-01-27 13:28 | disposition home or self-care (01) ==
LOC: ER 12:40
DX: S93.492A Sprain of other ligament of left ankle, initial encounter (principal); M25.572 Pain in left ankle and joints of left foot; F17.200 Nicotine dependence, unspecified, uncomplicated; I10 Essential (primary) hypertension; Z79.899 Other long term (current) drug therapy; Z85.850 Personal history of malignant neoplasm of thyroid; Z90.89 Acquired absence of other organs; Z87.19 Personal history of other diseases of the digestive system; X50.1XXA Overexertion from prolonged static or awkward postures, initial encounter; Y93.K1 Activity, walking an animal; Y92.89 Other specified places as the place of occurrence of the external cause; Y99.8 Other external cause status
CPT/HCPCS: 73610-TC; 73630-TC

== ENCOUNTER 2025-03-07 12:40 | Emergency (ER) | payer OTHER ==
[~2025-03-07] VITALS: Ht 175.3 cm; Wt 95.3 kg
[2025-03-07 12:47] VITALS: TEMP 98.1
[2025-03-07 13:16] LABS: PLATELET COUNT (AUTO) 178 K/uL (150-450); RED BLOOD CELL COUNT(AUTO) 4.93 MIL/uL (4.5-6.0); RED CELL DISTRIBUTION WIDTH 13.2 % (11.5-15.0); WHITE BLOOD COUNT (AUTO) 6.4 K/uL (4.3-11.0)
[2025-03-07 13:25] LABS: CALCIUM, SERUM 9.3 mg/dL (8.5-10.1); CREATININE 0.8 mg/dL (0.6-1.3); SODIUM SERUM 138.0 mmol/L (136-145); UREA NITROGEN, BLOOD 14.0 mg/dL (7-18)
[2025-03-07 13:30] LABS: ASPARTATE AMINOTRANSFERASE 222.0 U/L (15-37); TOTAL PROTEIN, SERUM 8.2 g/dL (6.4-8.2)
[2025-03-07] MEDS ORDERED: MORPHINE SULFATE INJ 2 MG/ML DISP.SYRIN ONE (13:43)
[2025-03-07 14:03] VITALS: BP 166/100; O2SAT 97
[2025-03-07 14:03] LABS: ALCOHOL, BLOOD 11.0 mg/dL (0-10)
[2025-03-07] MEDS: FAMOTIDINE/PF INJ 20 MG/2 ML VIAL IV ONE (14:32)
[2025-03-07] MEDS: MORPHINE SULFATE INJ 2 MG/ML DISP.SYRIN IV ONE (14:32)
[2025-03-07] MEDS ORDERED: FAMOTIDINE (20 MG) 20 MG TABLET ONE (14:35)
[2025-03-07] MEDS ORDERED: LIDOCAINE VISCOUS 2% UD 15 ML UDC ONE (14:35)
[2025-03-07] MEDS ORDERED: MAG HYDROX/AL HYDROX/SIMETH 30 ML UDC ONE (14:35)
[2025-03-07] MEDS: FAMOTIDINE (20 MG) 20 MG TABLET PO ONE (14:44)
[2025-03-07] MEDS: MAG HYDROX/AL HYDROX/SIMETH 30 ML UDC PO ONE (14:44)
[2025-03-07] MEDS: LIDOCAINE VISCOUS 2% UD 15 ML UDC MM ONE (14:44)
== END 2025-03-07 15:10 | disposition left against medical advice (07) ==
LOC: ER 12:40
DX: R07.89 Other chest pain (principal); R74.01 Elevation of levels of liver transaminase levels; I10 Essential (primary) hypertension; F17.200 Nicotine dependence, unspecified, uncomplicated; Z79.899 Other long term (current) drug therapy; Z85.850 Personal history of malignant neoplasm of thyroid; Z90.89 Acquired absence of other organs
CPT/HCPCS: 36415; 71045-TC; 76705-TC; 80053-TC; 83690-TC; 83735-TC; 84484-TC; 85025-TC; 85378-TC; G0480; J2270